=== PATIENT | male | born 1935 | race Caucasian/White ===

== ENCOUNTER 2017-08-21 05:30 | Day surgery (SDC) | payer OTHER ==
[~2017-08-21 05:30] MED LIST: ADULT ASPIRIN81 MG PO; AMOX1TAB12 PO; ANTIVERT25 M1 PO; BICARSIM FORTE125 MG PO; CEFADROXIL500 MG PO; COZAAR25 MG PO; DOXAZOSIN MESYLA1 MG; FUROSEMIDE20 MG PO; ISORDIL10 MG PO; LOSARTAN POTAS100 MG; MELATONIN10 MG PO; PEPCID20 MG PO; PLAVIX 75MG PO; PRAVASTATIN SOD20 MG PO; PREVACID30 MG PO; PROMETHAZINE W118 ML PO; PROVENTIL3 ML/2.5 M IH; RESPTHERAMACH; SIMBRINZA 1%-0.28 ML OP; SIMETHICONE180 MG PO; TESSALON PERLE100 M1 PO; TOPROL XL50 M1 PO; ZETIA10 MG; ZETIA10 MG PO; ZITHROMAX500 MG PO
[2017-08-21] MEDS ORDERED: ULTRACET PO (08:41)
== END 2017-08-21 10:10 | disposition home or self-care (01) ==
LOC: CIR.AMB 05:30
DX: C21.1 Malignant neoplasm of anal canal (principal); R19.4 Change in bowel habit

== ENCOUNTER → 2017-10-19 | Emergency (ER) | payer OTHER ==
[~2017-10-19] VITALS: Ht 170.2 cm; Wt 68.0 kg
[~2017-10-19] MED LIST changes: +ULTRACET PO
== END | disposition home or self-care (01) ==
LOC: ER 08:32
DX: N20.0 Calculus of kidney (principal); N28.1 Cyst of kidney, acquired; K80.80 Other cholelithiasis without obstruction; R14.0 Abdominal distension (gaseous); R19.7 Diarrhea, unspecified

== ENCOUNTER 2018-01-02 17:36 | Emergency (ER) | payer OTHER ==
[~2018-01-02] VITALS: Ht 170.2 cm; Wt 70.8 kg
== END 2018-01-02 19:32 | disposition home or self-care (01) ==
LOC: ER 17:36
DX: S40.011A Contusion of right shoulder, initial encounter (principal); W18.09XA Striking against other object with subsequent fall, initial encounter; Y93.89 Activity, other specified; Y92.89 Other specified places as the place of occurrence of the external cause; Y99.8 Other external cause status

== ENCOUNTER 2018-02-08 06:13 | Emergency (ER) | payer OTHER ==
[~2018-02-08] VITALS: Ht 170.2 cm; Wt 70.3 kg
== END 2018-02-08 09:20 | disposition home or self-care (01) ==
LOC: ER 06:13
DX: M54.5 Low back pain (principal)

== ENCOUNTER 2018-05-23 13:55 | Emergency (ER) | payer OTHER ==
[~2018-05-23] VITALS: Ht 170.2 cm; Wt 70.3 kg
[2018-05-23] MEDS ORDERED: TESSALON PERLE100 M1 PO (14:34)
[2018-05-23] MEDS ORDERED: IPRAT-ALBUT 0.5-3 ML (14:35)
[2018-05-23] MEDS ORDERED: SINGULAIR10 MG PO (14:35)
== END 2018-05-23 17:55 | disposition home or self-care (01) ==
LOC: ER 13:55
DX: J06.9 Acute upper respiratory infection, unspecified (principal); J11.1 Influenza due to unidentified influenza virus with other respiratory manifestations

== ENCOUNTER 2018-05-29 17:06 | Emergency (ER) | payer OTHER ==
[~2018-05-29] VITALS: Ht 170.2 cm; Wt 69.9 kg
[~2018-05-29 17:06] MED LIST changes: +IPRAT-ALBUT 0.5-3 ML; +SINGULAIR10 MG PO
== END 2018-05-29 22:38 | disposition home or self-care (01) ==
LOC: ER 17:06
DX: R10.13 Epigastric pain (principal); K57.30 Diverticulosis of large intestine without perforation or abscess without bleeding; K52.89 Other specified noninfective gastroenteritis and colitis; N28.1 Cyst of kidney, acquired

== ENCOUNTER 2019-05-29 01:16 | Emergency (ER) | payer OTHER ==
[~2019-05-29] VITALS: Ht 170.2 cm; Wt 70.3 kg
[2019-05-29] MEDS ORDERED: ANTI-GAS166 MG PO (06:01)
[2019-05-29] MEDS ORDERED: ORPHENADRINE C100 MG PO (06:01)
== END 2019-05-29 06:10 | disposition home or self-care (01) ==
LOC: ER 01:16
DX: K59.09 Other constipation (principal); R10.84 Generalized abdominal pain; M54.89 Other dorsalgia

== ENCOUNTER 2019-06-04 23:02 | Emergency (ER) | payer OTHER ==
[~2019-06-04] VITALS: Ht 170.2 cm; Wt 70.3 kg
[~2019-06-04 23:02] MED LIST changes: +ANTI-GAS166 MG PO; +ORPHENADRINE C100 MG PO
== END 2019-06-05 15:29 | disposition home or self-care (01) ==
LOC: ER 23:02
DX: K29.60 Other gastritis without bleeding (principal); M54.89 Other dorsalgia; K80.80 Other cholelithiasis without obstruction; N28.1 Cyst of kidney, acquired; N20.0 Calculus of kidney; K66.8 Other specified disorders of peritoneum

== ENCOUNTER 2019-07-12 01:05 | Emergency (ER) | payer OTHER ==
[~2019-07-12] VITALS: Ht 170.2 cm; Wt 70.3 kg
[2019-07-12] MEDS ORDERED: HYOSCYAMINE0.125 M2 (01:52)
== END 2019-07-12 11:27 | disposition home or self-care (01) ==
LOC: ER 01:05
DX: R14.0 Abdominal distension (gaseous) (principal)

== ENCOUNTER 2019-11-02 05:22 | Emergency (ER) | payer OTHER ==
[~2019-11-02] VITALS: Ht 170.2 cm; Wt 69.9 kg
[~2019-11-02 05:22] MED LIST changes: +HYOSCYAMINE0.125 M2
[2019-11-02] MEDS ORDERED: COZAAR25 MG (05:43)
[2019-11-02] MEDS ORDERED: ALLEGRA ALLERG180 MG (05:44)
== END 2019-11-02 13:12 | disposition home or self-care (01) ==
LOC: ER 05:22 → CPU-OBS 05:24 → ER 05:24
DX: R10.13 Epigastric pain (principal); R14.3 Flatulence; R14.1 Gas pain; R14.2 Eructation

== ENCOUNTER 2021-06-09 02:01 | Emergency (ER) | payer OTHER ==
[~2021-06-09] VITALS: Ht 170.2 cm; Wt 68.0 kg
[~2021-06-09 02:01] MED LIST changes: +ALLEGRA ALLERG180 MG; +COZAAR25 MG
[2021-06-09] MEDS ORDERED: PEPCID AC20 MG PO (06:18)
== END 2021-06-09 06:32 | disposition home or self-care (01) ==
LOC: ER 02:01
DX: R07.89 Other chest pain (principal); R10.84 Generalized abdominal pain; R11.2 Nausea with vomiting, unspecified

== ENCOUNTER → 2022-12-06 | Emergency (ER) | payer OTHER ==
[~2022-12-06] VITALS: Ht 170.2 cm; Wt 68.0 kg
[~2022-12-06] MED LIST changes: +PEPCID AC20 MG PO
== END | disposition left against medical advice (07) ==
LOC: ER 19:32
DX: Z53.21 Procedure and treatment not carried out due to patient leaving prior to being seen by health care provider (principal)